=== PATIENT | male | born 1960 | race Caucasian/White ===

== ENCOUNTER 2017-03-20 11:23 | Outpatient (CLI) ==
[2016-08-18 14:39] VITALS: BMI 32.5
--- NOTE | 2017-03-20 12:06 | DI ---
Exam: Two x-rays of the right hip. Comparison: None available. Reason for exam: Back pain. FINDINGS: No acute fracture or dislocation. There are sclerotic changes in the right femoral head and right acetabulum with moderate degenerative disease. No unexplained calcific soft tissue densities or radiopaque retained foreign bodies. Surgical clips are seen in the right groin and upper leg. Impression: 1. No acute fracture or dislocation in the right hip. 2. Sclerotic and degenerative changes in the right hip may represent marked degenerative disease or sequela of avascular necrosis. If clinical concern exists, MRI may be performed.
== END 2017-03-20 11:24 | disposition home or self-care (01) ==
LOC: RAD 11:23
PROVIDERS: ATTEND General Practice
DX: M54.5 Low back pain (principal); M25.551 Pain in right hip

== ENCOUNTER 2017-04-10 10:20 | Outpatient (CLI) ==
[2016-08-18 14:39] VITALS: BMI 32.5
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
== END 2017-04-10 10:21 | disposition home or self-care (01) ==
LOC: RAD 10:20
PROVIDERS: ATTEND General Practice
DX: M25.551 Pain in right hip (principal)

== ENCOUNTER 2017-04-10 11:37 | Emergency (ER) ==
[2017-04-10 11:44] VITALS: BP 124/83; TEMP 97.9
[2017-04-10] MEDS ORDERED: MORPHINE 4 MG/ML SYRINGE IM STA (12:14)
[2017-04-10] MEDS ORDERED: ZOFRAN 4 MG/2 ML IM STA (12:14)
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
== END 2017-04-10 12:45 | disposition home or self-care (01) ==
LOC: ED 11:37
DX: M25.551 Pain in right hip (principal); F17.210 Nicotine dependence, cigarettes, uncomplicated
CPT/HCPCS: 36415; 86225; 96372; 99283

== ENCOUNTER 2017-05-10 14:47 | Outpatient (CLI) ==
--- NOTE | 2017-05-10 15:29 | US ---
EXAM: Ultrasound venous Doppler right lower extermity HISTORY: Pain in right lower leg COMPARISON: None TECHNIQUE: Venous duplex ultrasound of the right lower extremity was performed using color, davenport-sca le, and Doppler flow imaging. FINDINGS: There is normal color flow and compression of the right common femoral, greater saphenous (truncated with prior greater saphenous vein stripping), profunda femoral, femoral, popliteal, perone al, posterior tibial, and anterior tibial veins without evidence of intraluminal thrombus. No reflux is identified. IMPRESSION: No right lower extremity deep venous thrombosis.
== END 2017-05-10 14:48 | disposition home or self-care (01) ==
LOC: RAD 14:47
PROVIDERS: ATTEND Nurse Practitioner Family
DX: M79.661 Pain in right lower leg (principal)

== ENCOUNTER 2017-06-29 14:04 | Outpatient (RCR) ==
[2017-06-07 15:26] VITALS: BMI 27.9
== END 2017-07-20 ==
PROVIDERS: ATTEND Orthopaedic Surgery
DX: Z96.641 Presence of right artificial hip joint (principal)

== ENCOUNTER 2017-09-25 14:02 | Outpatient (CLI) ==
[2017-06-07 15:26] VITALS: BMI 27.9
--- NOTE | 2017-09-25 14:58 | US ---
EXAM: Right lower extremity venous Doppler History: Right leg pain. Technique: Multiple sonographic images through the right lower extremity were obtained. Color duple x Doppler was used to interrogate vascular flow. Findings: Right common femoral, greater saphenous, profunda, superficial femoral, popliteal, peronea l, posterior tibial and anterior tibial veins demonstrate spontaneous flow with normal compression an d normal augmentation. Incidental superficial varicose vein. Impression: 1. No sonographic evidence for deep venous thrombosis. 2. Incidental superficial varicose vein.
== END 2017-09-25 14:03 | disposition home or self-care (01) ==
LOC: RAD 14:02
PROVIDERS: ATTEND General Practice
DX: M79.604 Pain in right leg (principal)

== ENCOUNTER 2017-10-09 12:27 | Outpatient (CLI) ==
[2017-06-07 15:26] VITALS: BMI 27.9
== END 2017-10-09 12:28 | disposition home or self-care (01) ==
LOC: LAB 12:27
PROVIDERS: ATTEND General Practice
DX: M54.5 Low back pain (principal); G89.29 Other chronic pain; R39.11 Hesitancy of micturition; N52.9 Male erectile dysfunction, unspecified; I10 Essential (primary) hypertension; Z79.899 Other long term (current) drug therapy; Z12.5 Encounter for screening for malignant neoplasm of prostate
CPT/HCPCS: 36415; 80053; 80061; 82272; 85025

== ENCOUNTER 2018-03-12 16:25 | Outpatient (CLI) ==
[2017-06-07 15:26] VITALS: BMI 27.9
== END 2018-03-12 16:26 | disposition home or self-care (01) ==
LOC: FCC-LAB 16:25
PROVIDERS: ATTEND General Practice
DX: L02.91 Cutaneous abscess, unspecified (principal)
CPT/HCPCS: 87070; 87186

== ENCOUNTER 2018-08-27 15:49 | Outpatient (CLI) ==
[2017-06-07 15:26] VITALS: BMI 27.9
--- NOTE | 2018-08-27 16:24 | DI ---
EXAM: Two views of the chest. History: Cough. Findings: Heart size is normal. No focal consolidation. No appreciable pleural fluid and no pneumo thorax. No acute osseous abnormalities. Impression: No acute cardiopulmonary process
== END 2018-08-27 15:50 | disposition home or self-care (01) ==
LOC: RAD 15:49
PROVIDERS: ATTEND General Practice
DX: R05 Cough (principal)

== ENCOUNTER 2018-10-22 11:01 | Outpatient (CLI) ==
[2017-06-07 15:26] VITALS: BMI 27.9
== END 2018-10-22 11:02 | disposition home or self-care (01) ==
LOC: RHC-LAB 11:01
PROVIDERS: ATTEND General Practice
DX: Z00.00 Encounter for general adult medical examination without abnormal findings (principal); I10 Essential (primary) hypertension
CPT/HCPCS: 36415; 80053; 85025

== ENCOUNTER 2018-10-23 15:44 | Outpatient (CLI) ==
[2017-06-07 15:26] VITALS: BMI 27.9
== END 2018-10-23 15:45 | disposition home or self-care (01) ==
LOC: RHC-LAB 15:44
PROVIDERS: ATTEND General Practice
DX: Z00.00 Encounter for general adult medical examination without abnormal findings (principal); I10 Essential (primary) hypertension
CPT/HCPCS: 81001